=== PATIENT | male | born 1930 | race Caucasian/White ===

== ENCOUNTER 2016-05-23 12:42 | Inpatient (IN) | payer MEDICARE, OTHER ==
[2016-05-23] VITALS (20 sets, daily range): BP systolic 71–97; RESP 18–26; TEMP 97.6–98.9; BMI 25.8
[~2016-05-23] VITALS: Ht 175.3 cm; Wt 84.0 kg
[2016-05-23] MEDS ORDERED: CEFTRIAXONE 1 GM VIAL ONE (13:01)
[2016-05-23] MEDS ORDERED: ACETAMINOPHEN 650 MG SUPP RECTAL ONE (13:01)
[2016-05-23] MEDS ORDERED: SODIUM CHLORIDE 0.9% 100 ML IV ONE (13:02)
[2016-05-23] MEDS ORDERED: AZITHROMYCIN 500 MG VIAL IV ONE (13:24)
[2016-05-23] MEDS ORDERED: SODIUM CHLORIDE 0.9% 250 ML IV ONE (13:24)
[2016-05-23] MEDS ORDERED: SODIUM CHLORIDE 0.9% 1,000 ML ONE (13:36)
[2016-05-23] MEDS ORDERED: SODIUM CHLORIDE 0.9% 1,000 ML IV ONE (15:55)
[2016-05-23] MEDS ORDERED: SODIUM CHLORIDE 0.9% 1,000 ML IV SCH (16:30)
[2016-05-23] MEDS ORDERED: PHARMACY TO DOSE IV SCH ×2 (16:30)
[2016-05-23] MEDS ORDERED: ONDANSETRON 4 MG VIAL IV PUSH PRN (16:30)
[2016-05-23] MEDS ORDERED: ACETAMINOPHEN 325 MG TAB PO PRN (16:30)
[2016-05-23] MEDS ORDERED: DEXTROSE 50% SYRINGE 50 ML IV PRN (16:30)
[2016-05-23] MEDS ORDERED: GLUCAGON 1 MG VIAL IM PRN (16:30)
[2016-05-23] MEDS ORDERED: SALINE FLUSH 10 ML FLUSH PRN (16:30)
[2016-05-23] MEDS ORDERED: ACETAMINOPHEN 1,000 MG/100 ML IV PRN (17:15)
[2016-05-23] MEDS ORDERED: NEB-ALBUTEROL 2.5 MG/3 ML INH PRN (17:15)
[2016-05-23] MEDS ORDERED: METOPROLOL 5 MG/5 ML VIAL IV SCH (18:00)
[2016-05-23] MEDS: SALINE FLUSH 10 ML FLUSH SCH (20:58)
[2016-05-23] MEDS ORDERED: DOCUSATE SOD 100 MG CAP PO SCH (21:00)
[2016-05-24] VITALS (21 sets, daily range): BP systolic 80–106; RESP 16–28; TEMP 97.4–98.2; Ht 175.3 cm; Wt 84.0 kg
[2016-05-24] MEDS ORDERED: SODIUM CHLORIDE 0.9% 1,000 ML IV SCH
[2016-05-24] MEDS: LACT RINGERS 1,000 ML IV SCH ×2 (00:04→09:41)
[2016-05-24] MEDS: METRONIDAZOLE 500MG/100ML 100 ML IV SCH ×4 (01:33→23:44)
[2016-05-24] MEDS: SODIUM CHLORIDE 0.9% FLUSH BAG 500 ML IV SCH (06:00)
[2016-05-24] MEDS: SALINE FLUSH 10 ML FLUSH SCH ×2 (08:41→23:43)
[2016-05-24] MEDS ORDERED: ENOXAPARIN 30 MG/0.3 ML SYR SUBQ SCH (09:00)
[2016-05-24] MEDS: CEFTRIAXONE 2 GM in SODIUM CHLORIDE 0.9% 50 ML IV SCH (09:21)
[2016-05-24] MEDS: AZITHROMYCIN 500 MG in SODIUM CHLORIDE 0.9% 250 ML IV SCH (09:41)
[2016-05-24] MEDS: ENOXAPARIN 30 MG/0.3 ML SYR SUBQ SCH ×2 (09:41→19:48)
[2016-05-24] MEDS ORDERED: MISSING DOSE XX ONE (09:45)
[2016-05-24] MEDS: ASPIRIN 300 MG SUPP RECTAL SCH (11:12)
[2016-05-25 04:21] VITALS: BP_SYST 107; RESP 20; TEMP 98.1
[2016-05-25] MEDS: SODIUM CHLORIDE 0.9% FLUSH BAG 500 ML IV SCH (06:10)
[2016-05-25 07:59] VITALS: BP_SYST 99; RESP 20; TEMP 98.2
[2016-05-25] MEDS: METRONIDAZOLE 500MG/100ML 100 ML IV SCH ×2 (08:16→15:10)
[2016-05-25] MEDS: SALINE FLUSH 10 ML FLUSH SCH ×2 (08:17→21:20)
[2016-05-25] MEDS: ENOXAPARIN 30 MG/0.3 ML SYR SUBQ SCH ×2 (08:18→21:20)
[2016-05-25] MEDS: ASPIRIN 300 MG SUPP RECTAL SCH (09:00)
[2016-05-25] MEDS: AZITHROMYCIN 500 MG in SODIUM CHLORIDE 0.9% 250 ML IV SCH (10:11)
[2016-05-25] MEDS: CEFTRIAXONE 2 GM in SODIUM CHLORIDE 0.9% 50 ML IV SCH (12:13)
[2016-05-25 12:14] VITALS: BP_SYST 106; RESP 20
[2016-05-25] MEDS ORDERED: BISACODYL EC 5 MG TAB PO PRN (13:25)
[2016-05-25] MEDS: Carvedilol 3.125 MG TAB PO SCH ×3 (14:08→21:20)
[2016-05-25] MEDS: CLOPIDOGREL 75 MG TAB PO SCH (14:08)
[2016-05-25] MEDS ORDERED: MISSING DOSE XX ONE (14:20)
[2016-05-25 16:18] VITALS: BP_SYST 123; RESP 18; TEMP 98.4
[2016-05-25 19:07] VITALS: BP_SYST 104; RESP 18; TEMP 97.6
[2016-05-25 22:42] VITALS: BP_SYST 94; RESP 18; TEMP 98.2
[2016-05-26] VITALS (9 sets, daily range): BP systolic 80–125; RESP 16–40; TEMP 97.4–101.3
[2016-05-26] MEDS: METRONIDAZOLE 500MG/100ML 100 ML IV SCH ×4 (00:55→23:36)
[2016-05-26] MEDS ORDERED: METOPROLOL 5 MG/5 ML VIAL IV ONE (03:00)
[2016-05-26] MEDS: SODIUM CHLORIDE 0.9% FLUSH BAG 500 ML IV SCH (05:47)
[2016-05-26] MEDS ORDERED: MISSING DOSE XX ONE (08:55)
[2016-05-26] MEDS: ASPIRIN 81 MG CHEW TAB PO SCH (08:57)
[2016-05-26] MEDS: SALINE FLUSH 10 ML FLUSH SCH ×2 (08:57→21:03)
[2016-05-26] MEDS: CLOPIDOGREL 75 MG TAB PO SCH (08:57)
[2016-05-26] MEDS: Carvedilol 3.125 MG TAB PO SCH ×2 (08:57→21:03)
[2016-05-26] MEDS: ENOXAPARIN 30 MG/0.3 ML SYR SUBQ SCH (08:59)
[2016-05-26] MEDS: CEFTRIAXONE 2 GM in SODIUM CHLORIDE 0.9% 50 ML IV SCH (10:00)
[2016-05-26] MEDS: glipiZIDE 5 MG TAB PO SCH ×2 (10:01→21:03)
[2016-05-26] MEDS: AZITHROMYCIN 500 MG in SODIUM CHLORIDE 0.9% 250 ML IV SCH (10:45)
[2016-05-26] MEDS ORDERED: SODIUM CHLORIDE 0.9% 1,000 ML IV ONE (15:05)
[2016-05-26] MEDS ORDERED: ACETAMINOPHEN 325 MG TAB PO PRN (20:55)
[2016-05-26] MEDS ORDERED: DIGOXIN 0.5 MG/2 ML AMP IV ONE (22:15)
[2016-05-27] MEDS: LEVEMIR INSULIN SUBQ SCH ×2 (00:02→21:36)
[2016-05-27] MEDS: ENOXAPARIN 30 MG/0.3 ML SYR SUBQ SCH ×3 (00:03→21:37)
[2016-05-27 01:31] VITALS: TEMP 99.5
[2016-05-27 03:01] VITALS: BP_SYST 130; RESP 34; TEMP 98.3
[2016-05-27] MEDS: SODIUM CHLORIDE 0.9% FLUSH BAG 500 ML IV SCH (05:30)
[2016-05-27 08:12] VITALS: BP_SYST 120; RESP 22; TEMP 97.3
[2016-05-27] MEDS ORDERED: MISSING DOSE XX ONE (08:25)
[2016-05-27] MEDS: METRONIDAZOLE 500MG/100ML 100 ML IV SCH ×3 (08:27→23:22)
[2016-05-27] MEDS: SALINE FLUSH 10 ML FLUSH SCH ×2 (08:28→20:00)
[2016-05-27] MEDS: Carvedilol 3.125 MG TAB PO SCH ×2 (08:28→21:37)
[2016-05-27] MEDS: ASPIRIN 81 MG CHEW TAB PO SCH (08:28)
[2016-05-27] MEDS: CLOPIDOGREL 75 MG TAB PO SCH (08:28)
[2016-05-27] MEDS: glipiZIDE 5 MG TAB PO SCH ×2 (09:08→21:34)
[2016-05-27] MEDS: CEFTRIAXONE 2 GM in SODIUM CHLORIDE 0.9% 50 ML IV SCH (09:09)
[2016-05-27 11:33] VITALS: BP_SYST 99; RESP 32; TEMP 97.1
[2016-05-27] MEDS ORDERED: PHARMACY TO DOSE VANCOMYCIN IV SCH (14:40)
[2016-05-27] MEDS ORDERED: PHARMACY TO DOSE ZOSYN IV SCH (14:40)
[2016-05-27] MEDS ORDERED: VANCOMYCIN 1,500 MG in SODIUM CHLORIDE 0.9% 250 ML IV STA (15:01)
[2016-05-27 16:03] VITALS: BP_SYST 117; RESP 16; TEMP 98.4
[2016-05-27] MEDS: PIPERACIL/TAZO 4.5GM/100ML 100 ML IV SCH ×2 (18:08→23:21)
[2016-05-27 19:00] VITALS: BP_SYST 119; RESP 18; TEMP 97.3
[2016-05-27] MEDS: SODIUM CHLORIDE 0.9% 1,000 ML IV SCH (19:52)
[2016-05-28] VITALS (7 sets, daily range): BP systolic 102–124; RESP 18–28; TEMP 97.3–97.7
[2016-05-28] MEDS ORDERED: VANCOMYCIN 1,250 MG in SODIUM CHLORIDE 0.9% 250 ML IV SCH (04:00)
[2016-05-28] MEDS: SODIUM CHLORIDE 0.9% FLUSH BAG 500 ML IV SCH (05:40)
[2016-05-28] MEDS: PIPERACIL/TAZO 4.5GM/100ML 100 ML IV SCH ×4 (05:43→23:29)
[2016-05-28] MEDS: SODIUM CHLORIDE 0.9% 1,000 ML IV SCH (05:44)
[2016-05-28] MEDS: SALINE FLUSH 10 ML FLUSH SCH ×2 (08:00→20:00)
[2016-05-28] MEDS: ENOXAPARIN 30 MG/0.3 ML SYR SUBQ SCH ×2 (09:55→22:59)
[2016-05-28] MEDS: ASPIRIN 81 MG CHEW TAB PO SCH (09:55)
[2016-05-28] MEDS: CLOPIDOGREL 75 MG TAB PO SCH (09:56)
[2016-05-28] MEDS: Carvedilol 3.125 MG TAB PO SCH ×2 (09:56→22:55)
[2016-05-28] MEDS: glipiZIDE 5 MG TAB PO SCH ×2 (09:56→22:56)
[2016-05-28] MEDS: METRONIDAZOLE 500MG/100ML 100 ML IV SCH ×3 (10:04→23:29)
[2016-05-28] MEDS ORDERED: Furosemide 40 MG/4 ML VIAL IV ONE (18:35)
[2016-05-28] MEDS: LEVEMIR INSULIN SUBQ SCH (22:57)
[2016-05-29] MEDS: VANCOMYCIN 1,250 MG in SODIUM CHLORIDE 0.9% 250 ML IV SCH (04:15)
[2016-05-29 04:27] VITALS: BP_SYST 91; RESP 20; TEMP 97.6
[2016-05-29] MEDS: SODIUM CHLORIDE 0.9% FLUSH BAG 500 ML IV SCH (05:27)
[2016-05-29] MEDS: PIPERACIL/TAZO 4.5GM/100ML 100 ML IV SCH ×3 (07:38→17:37)
[2016-05-29 07:46] VITALS: BP_SYST 111; RESP 20; TEMP 97.3
[2016-05-29] MEDS: Carvedilol 3.125 MG TAB PO SCH ×2 (09:02→23:58)
[2016-05-29] MEDS: SALINE FLUSH 10 ML FLUSH SCH ×2 (09:02→20:00)
[2016-05-29] MEDS: METRONIDAZOLE 500MG/100ML 100 ML IV SCH ×2 (09:02→16:19)
[2016-05-29] MEDS: CLOPIDOGREL 75 MG TAB PO SCH (09:03)
[2016-05-29] MEDS: ASPIRIN 81 MG CHEW TAB PO SCH (09:03)
[2016-05-29] MEDS: glipiZIDE 5 MG TAB PO SCH ×2 (09:03→23:58)
[2016-05-29] MEDS: ENOXAPARIN 30 MG/0.3 ML SYR SUBQ SCH (09:03)
[2016-05-29 12:32] VITALS: BP_SYST 93; RESP 18; TEMP 99
[2016-05-29] MEDS ORDERED: DIGOXIN 0.25 MG TAB PO ONE (15:53)
[2016-05-29] MEDS ORDERED: DIGOXIN 0.5 MG/2 ML AMP IV ONE (15:55)
[2016-05-29 16:44] VITALS: BP_SYST 92; RESP 22; TEMP 98
[2016-05-29 19:00] VITALS: BP_SYST 119; RESP 20; TEMP 98
[2016-05-29 23:18] VITALS: BP_SYST 129; RESP 20; TEMP 98.1
[2016-05-29] MEDS: LEVEMIR INSULIN SUBQ SCH (23:59)
[2016-05-30] MEDS: METRONIDAZOLE 500MG/100ML 100 ML IV SCH ×4 (00:03→23:03)
[2016-05-30] MEDS: PIPERACIL/TAZO 4.5GM/100ML 100 ML IV SCH ×5 (00:03→23:02)
[2016-05-30 04:00] VITALS: BP_SYST 119; RESP 20; TEMP 97.6
[2016-05-30] MEDS: VANCOMYCIN 1,250 MG in SODIUM CHLORIDE 0.9% 250 ML IV SCH (04:10)
[2016-05-30] MEDS: SODIUM CHLORIDE 0.9% FLUSH BAG 500 ML IV SCH (05:57)
[2016-05-30] MEDS: SALINE FLUSH 10 ML FLUSH SCH ×2 (08:00→20:31)
[2016-05-30 08:07] VITALS: BP_SYST 111; RESP 18; TEMP 97.4
[2016-05-30] MEDS: glipiZIDE 5 MG TAB PO SCH ×2 (08:36→20:20)
[2016-05-30] MEDS: Carvedilol 3.125 MG TAB PO SCH ×2 (08:36→20:31)
[2016-05-30] MEDS: ASPIRIN 81 MG CHEW TAB PO SCH (08:36)
[2016-05-30] MEDS: CLOPIDOGREL 75 MG TAB PO SCH (08:36)
[2016-05-30] MEDS: ENOXAPARIN 30 MG/0.3 ML SYR SUBQ SCH ×3 (08:37→20:31)
[2016-05-30] MEDS ORDERED: MISSING DOSE XX ONE (11:55)
[2016-05-30 11:56] VITALS: BP_SYST 116; RESP 18; TEMP 97.8
[2016-05-30] MEDS ORDERED: DIGOXIN 0.25 MG TAB PO SCH (12:00)
[2016-05-30] MEDS: DIGOXIN 0.125 MG TAB PO SCH (13:12)
[2016-05-30] MEDS: VANCOMYCIN 1,000 MG in SODIUM CHLORIDE 0.9% 250 ML IV SCH (17:47)
[2016-05-30 19:35] VITALS: BP_SYST 115; RESP 18; TEMP 98.1
[2016-05-30] MEDS: LEVEMIR INSULIN SUBQ SCH (20:21)
[2016-05-30 22:57] VITALS: BP_SYST 113; RESP 16; TEMP 98.5
[2016-05-31 02:53] VITALS: BP_SYST 104; RESP 20; TEMP 98.5
[2016-05-31] MEDS: VANCOMYCIN 1,000 MG in SODIUM CHLORIDE 0.9% 250 ML IV SCH ×2 (04:34→16:00)
[2016-05-31] MEDS: SODIUM CHLORIDE 0.9% FLUSH BAG 500 ML IV SCH (04:34)
[2016-05-31] MEDS: PIPERACIL/TAZO 4.5GM/100ML 100 ML IV SCH ×3 (07:30→18:19)
[2016-05-31 07:52] VITALS: BP_SYST 105; RESP 18; TEMP 98.1
[2016-05-31] MEDS: ASPIRIN 81 MG CHEW TAB PO SCH (08:32)
[2016-05-31] MEDS: CLOPIDOGREL 75 MG TAB PO SCH (08:32)
[2016-05-31] MEDS: ENOXAPARIN 30 MG/0.3 ML SYR SUBQ SCH ×2 (08:32→21:06)
[2016-05-31] MEDS: Carvedilol 3.125 MG TAB PO SCH ×2 (08:33→21:05)
[2016-05-31] MEDS: SALINE FLUSH 10 ML FLUSH SCH ×2 (08:39→21:06)
[2016-05-31] MEDS: glipiZIDE 5 MG TAB PO SCH ×2 (09:00→19:49)
[2016-05-31 12:19] VITALS: BP_SYST 115; RESP 18; TEMP 97.6
[2016-05-31] MEDS: DIGOXIN 0.125 MG TAB PO SCH (12:20)
[2016-05-31 17:35] VITALS: BP_SYST 123; RESP 18; TEMP 97.2
[2016-05-31 19:42] VITALS: BP_SYST 138; RESP 26; TEMP 97.3
[2016-05-31] MEDS: LEVEMIR INSULIN SUBQ SCH (19:50)
[2016-05-31 22:36] VITALS: BP_SYST 121; RESP 24; TEMP 97.4
[2016-06-01] MEDS: PIPERACIL/TAZO 4.5GM/100ML 100 ML IV SCH ×4 (00:06→17:31)
[2016-06-01 02:32] VITALS: BP_SYST 123; RESP 18; TEMP 98
[2016-06-01] MEDS: VANCOMYCIN 1,000 MG in SODIUM CHLORIDE 0.9% 250 ML IV SCH ×2 (04:09→15:52)
[2016-06-01] MEDS: SODIUM CHLORIDE 0.9% FLUSH BAG 500 ML IV SCH (06:06)
[2016-06-01 07:57] VITALS: BP_SYST 126; RESP 18; TEMP 97.2
[2016-06-01] MEDS: CLOPIDOGREL 75 MG TAB PO SCH (08:42)
[2016-06-01] MEDS: SALINE FLUSH 10 ML FLUSH SCH ×2 (08:42→20:00)
[2016-06-01] MEDS: glipiZIDE 5 MG TAB PO SCH ×2 (08:42→20:21)
[2016-06-01] MEDS: Carvedilol 3.125 MG TAB PO SCH ×2 (08:43→20:58)
[2016-06-01] MEDS: ASPIRIN 81 MG CHEW TAB PO SCH (08:43)
[2016-06-01] MEDS: ENOXAPARIN 30 MG/0.3 ML SYR SUBQ SCH ×2 (08:43→20:58)
[2016-06-01 12:06] VITALS: BP_SYST 108; RESP 18; TEMP 98.1
[2016-06-01] MEDS: DIGOXIN 0.125 MG TAB PO SCH (12:12)
[2016-06-01 15:29] VITALS: BP_SYST 141; RESP 20; TEMP 97.8
[2016-06-01] MEDS: LEVEMIR INSULIN SUBQ SCH (20:21)
[2016-06-01 20:27] VITALS: BP_SYST 126; RESP 20; TEMP 97.8
[2016-06-01 23:21] VITALS: BP_SYST 136; RESP 20; TEMP 97.5
[2016-06-02] MEDS: PIPERACIL/TAZO 4.5GM/100ML 100 ML IV SCH ×5 (00:23→23:13)
[2016-06-02 03:29] VITALS: BP_SYST 133; RESP 20; TEMP 97.8
[2016-06-02] MEDS: VANCOMYCIN 1,000 MG in SODIUM CHLORIDE 0.9% 250 ML IV SCH ×2 (03:35→15:30)
[2016-06-02] MEDS: SODIUM CHLORIDE 0.9% FLUSH BAG 500 ML IV SCH (06:18)
[2016-06-02 08:05] VITALS: BP_SYST 120; RESP 20; TEMP 98.4
[2016-06-02] MEDS: glipiZIDE 5 MG TAB PO SCH ×2 (09:24→20:32)
[2016-06-02] MEDS: ASPIRIN 81 MG CHEW TAB PO SCH (09:24)
[2016-06-02] MEDS: CLOPIDOGREL 75 MG TAB PO SCH (09:24)
[2016-06-02] MEDS: ENOXAPARIN 30 MG/0.3 ML SYR SUBQ SCH ×2 (09:24→20:32)
[2016-06-02] MEDS: Carvedilol 3.125 MG TAB PO SCH ×2 (09:24→20:33)
[2016-06-02] MEDS: SALINE FLUSH 10 ML FLUSH SCH ×2 (09:25→20:00)
[2016-06-02 12:02] VITALS: BP_SYST 141; RESP 18; TEMP 97.6
[2016-06-02] MEDS: DIGOXIN 0.125 MG TAB PO SCH (12:09)
[2016-06-02 20:08] VITALS: BP_SYST 132; RESP 18; TEMP 98
[2016-06-02] MEDS: LEVEMIR INSULIN SUBQ SCH (20:28)
[2016-06-02 23:05] VITALS: BP_SYST 133; RESP 18; TEMP 97.5
[2016-06-03 00:32] VITALS: BP_SYST 118; TEMP 97.2
[2016-06-03 03:54] VITALS: BP_SYST 139; TEMP 97.4
[2016-06-03] MEDS: VANCOMYCIN 1,000 MG in SODIUM CHLORIDE 0.9% 250 ML IV SCH (04:22)
[2016-06-03] MEDS: SODIUM CHLORIDE 0.9% FLUSH BAG 500 ML IV SCH (04:23)
[2016-06-03 07:22] VITALS: BP_SYST 123; RESP 22; TEMP 97.7
[2016-06-03] MEDS: PIPERACIL/TAZO 4.5GM/100ML 100 ML IV SCH ×2 (07:52→13:21)
[2016-06-03] MEDS: SALINE FLUSH 10 ML FLUSH SCH (07:57)
[2016-06-03] MEDS: Carvedilol 3.125 MG TAB PO SCH (10:26)
[2016-06-03] MEDS: ASPIRIN 81 MG CHEW TAB PO SCH (10:26)
[2016-06-03] MEDS: CLOPIDOGREL 75 MG TAB PO SCH (10:26)
[2016-06-03] MEDS: glipiZIDE 5 MG TAB PO SCH (10:26)
[2016-06-03] MEDS: ENOXAPARIN 30 MG/0.3 ML SYR SUBQ SCH (10:27)
[2016-06-03 11:34] VITALS: BP_SYST 123; RESP 20; TEMP 97.6
[2016-06-03] MEDS: DIGOXIN 0.125 MG TAB PO SCH (13:25)
[2016-06-03 13:42] VITALS: BP_SYST 123; RESP 20; TEMP 97.6
[2016-06-03 14:09] VITALS: BP_SYST 123; RESP 20; TEMP 97.6
== END 2016-06-03 15:01 | DRG 871 ==
LOC: ENRESERVDT → ENRESERVTM → ER 13:02 → ENPENDDIS 14:51 → EMR 14:51 → DELPENDDIS 14:51 → CCU 15:30 → PCU 05-24 18:41 → MC2 05-25 12:01 → PCU 05-25 12:02 → 4NT 06-03 00:10
PROVIDERS: ADMIT Internal Medicine; ATTEND Internal Medicine
CPT/HCPCS: 36415; 36600; 70450; 71010; 80048; 80053; 80202; 81001; 82040; 82140; 82553; 82607; 82746; 82803; 82947; 83018; 83605; 83735; 83880; 84100; 84439; 84443; 84484; 85025; 85610; 86618; 86780; 87040; 87077; 87088; 87186; 87278; 87299; 87804; 93005; 93971; 94799; 95819; 96361; 96365; 96367; 99223; 99232; 99233; 99291